=== PATIENT | female | born 1950 | race Caucasian/White ===

== ENCOUNTER 2017-05-25 13:55 | Emergency (ER) | payer SELFPAY ==
[~2017-05-25] VITALS: Ht 152.4 cm; Wt 60.0 kg
[2017-05-25 13:57] VITALS: BP 170/79; PULSE 74; RESP 20; TEMP 98.3; O2SAT 100
[2017-05-25] MEDS ORDERED: ERYTOIN10 RIGHT EYE (14:51)
[2017-05-25] MEDS ORDERED: IBUP-232 PO (14:51)
--- NOTE | 2017-05-25 14:52 | PD ---
HPI Chief Complaint: Eye Problems/Injury Time Seen by Provider: 14:47 Travel History International Travel<30 days: No Contact w/Intl Traveler<30days: No Traveled to known affect area: No History of Present Illness HPI 66-year-old female presents to the emergency Department with complaint of right eye pain and redness this started today after putting in a contact lens after cleaning it with contact lens cleaning solution. She has been flushing her eye for the last 3 hours for symptom management. Reports clear drainage. Reports blurry vision. Denies fever, vomiting. Allergies to epinephrine, iodine, Novocain. Has no other medical complaints. Symptoms are moderate in severity. No other modifying factors or associated signs and symptoms. PFSH Past Medical History Medical History: Denies Significant Hx Influenza Vaccination: Yes Past Surgical History Gynecologic Surgery: Yes (cysts removed) Social History Alcohol Use: No Tobacco Use: No Substance Use: No Allergies-Medications (Allergen,Severity, Reaction): Coded Allergies: epinephrine (Verified Allergy, Severe, heart palpitations, 05/25/17) iodine (Verified Allergy, Severe, heart palpitations, 05/25/17) Uncoded Allergies: novacaine (Allergy, Severe, heart palpitations, 05/25/17) Reported Meds & Prescriptions Reported Meds & Active Scripts Active Ibuprofen 600 Mg Tab 600 Mg PO Q6H PRN Erythromycin Opth Oint 5 Mg/Gm Oint 1 Applic RIGHT EYE QID 7 Days Review of Systems Except as stated in HPI: all other systems reviewed are Neg Physical Exam Narrative GENERAL: Well-nourished, well-developed female patient, in no acute distress SKIN: Warm and dry. HEAD: Atraumatic. Normocephalic. EYES: Pupils equal and round at 2 mm with brisk reaction. PERRLA. EOMI. Right lid eversion with no foreign body noted. Right eye with scleral erythema and mild lid edema. No orbital tenderness, erythema or cellulitis. Right eye with photophobia. No consensual photophobia. No scleral icterus. Clear drainage. Nix lamp exam reveals normal. Right eye pH 7. ENT: Mucosa pink and moist. Airway patent. NECK: Trachea midline. CARDIOVASCULAR: Regular rate. RESPIRATORY: No accessory muscle use. GASTROINTESTINAL: Flat. NEUROLOGICAL: Awake and alert. Oriented 3. No obvious cranial nerve deficits. Motor grossly within normal limits. Normal speech. PSYCHIATRIC: Appropriate mood and affect; insight and judgment normal. Data Data Last Documented VS Vital Signs Date Time Temp Pulse Resp B/P (MAP) Pulse Ox O2 Delivery O2 Flow Rate FiO2 05/25/17 14:58 05/25/17 13:57 98.3 74 20 100 Room Air MDM Medical Decision Making Medical Screen Exam Complete: Yes Emergency Medical Condition: Yes Medical Record Reviewed: Yes Differential Diagnosis Eye chemical exposure, foreign body, chemical abrasion, chemical burn Narrative Course 66-year-old female with right eye chemical exposure to a contact lens cleaning solution. With lamp exam is normal. Right eye pH is 7. I offered the patient pain medication in the ER and she declined. Erythromycin prescribed for home. Instructed patient to follow up with ophthalmology. Instructed patient to follow up with primary care provider. Patient verbalizes understanding and agreement with treatment plan. Patient is medically cleared and stable for discharge. Discussed reasons to return to the emergency department. Patient agrees with treatment plan. The patients vital signs are stable and the patient is stable for outpatient follow-up and treatment. Patient discharged home, stable and in no acute distress. Diagnosis Primary Impression: Chemical exposure of eye Referrals: Maintenance Specialist Primary Care Physician Patient Instructions: Chemical Eye [facility] (ED), General Instructions Additional Instructions: Ibuprofen or Tylenol as directed and as needed to reduce pain Do not rub the eye Refrigerated eye drops as needed to reduce pain Cool compresses to the eye as needed to reduce pain Follow-up with ophthalmology Primary care provider Return to the emergency department immediately with worsening of symptoms Med/Other Pt SpecificInfo: Prescription(s) given Scripts Ibuprofen (Ibuprofen) 600 Mg Tab 600 MG PO Q6H Y for PAIN, #20 TAB 0 Refills Prov: Cristiana Mccord 05/25/17 Erythromycin Opth Oint (Erythromycin Opth Oint) 5 Mg/Gm Oint 1 APPLIC RIGHT EYE QID for Infection for 7 Days, #1 TUBE 0 Refills Prov: Cristiana Mccord 05/25/17 Disposition: 01 DISCHARGE HOME Condition: Stable Cristiana Mccord May 25, 2017 14:52
== END 2017-05-25 15:25 | disposition home or self-care (01) ==
LOC: NEPD 13:55
DX: Z77.098 Contact with and (suspected) exposure to other hazardous, chiefly nonmedicinal, chemicals (principal)
CPT/HCPCS: 99283

== ENCOUNTER 2017-12-30 06:07 | Day surgery (SDC) | payer OTHER ==
[~2017-12-30] VITALS: Ht 152.4 cm; Wt 58.6 kg
[2017-12-30] VITALS (8 sets, daily range): BP systolic 114–155; BP diastolic 64–90; PULSE 56–65; RESP 16–18; TEMP 98; O2SAT 94–98
[~2017-12-30 06:07] MED LIST: ERYTOIN10 RIGHT EYE; IBUP-232 PO
[2017-12-30] MEDS ORDERED: SODIUM CHLOR 0.9% 1000 ML IV SCH (07:00)
[2017-12-30] MEDS ORDERED: NAPR500 PO (07:05)
[2017-12-30] MEDS ORDERED: CALC12502 PO (07:05)
[2017-12-30] MEDS ORDERED: FAMO1TAB37 PO (07:06)
[2017-12-30] MEDS ORDERED: MIDAZOLAM HCL 2 MG/2 ML VIAL ONE ×2 (08:19→09:02)
--- NOTE | 2017-12-30 09:20 | PD.RAD ---
Post CT Procedure Prog Note Pre Procedure Diagnosis: (1) Lung nodule, solitary Post Procedure Diagnosis: Procedure Date: Dec 30, 2017 Supervising Radiologist: Bang Morris Proceduralist/Assist: kitty ford Estimated blood loss: none Anesthesia: Conscious Sedation Plan of Activity Patient to Unit: [facility] Patient Condition: Good See PACS Report for procedural detail/treatment Bang Morris MD Dec 30, 2017 09:20
[2017-12-30] MEDS ORDERED: oxyCODONE/ACETAMINOPHEN 5 MG/325 MG TAB PO PRN (09:30)
--- NOTE | 2017-12-30 10:25 | RADRPT ---
EXAM DATE/TIME: 12/30/2017 10:34 [facility] COMPARISON: CT NEEDLE BIOPSY LUNG, LEFT, December 30, 2017, 8:44. INDICATIONS : Status post left lung biopsy. MEDICAL HISTORY : Lung mass. SURGICAL HISTORY : None. ENCOUNTER: Initial ACUITY: 1 day PAIN SCORE: 0/10 LOCATION: Left chest FINDINGS: A single frontal expiratory view of the chest was performed. A mass lesion projects over the left sca pula in the upper lung. No pneumothorax identified. Minimal interstitial prominence in the left lingu lar/lower lobe may represent atelectasis or scarring. CONCLUSION: No pneumothorax post biopsy of the left lung. Albert Hill MD on December 30, 2017 at 10:22 Board Certified Radiologist. This report was verified electronically.
--- NOTE | 2017-12-30 15:36 | RADRPT ---
EXAM DATE/TIME: 12/30/2017 08:44 [facility] COMPARISON: No previous studies available for comparison. INDICATIONS : Left lung mass. SEDATION TIME: 40 minutes BIOPSY SITE: Left MEDICATION(S): 1.) 2.5 mg midazolam (Versed) IV 2.) 125 mcg fentanyl (Sublimaze) IV DEVICE(S): 1.) 20 gauge Bard MEDICAL HISTORY : None. SURGICAL HISTORY : None. ENCOUNTER: Initial ACUITY: 1 day PAIN SCORE: 0/10 LOCATION: chest A total of one core specimen(s) were obtained and sent to the laboratory for pathologic evaluation. PROCEDURE: 1. CT guided lung biopsy. 2. Conscious sedation with continuous EKG and oximetry monitoring. 3. EKG and oximetry remained stable throughout the procedure. Prior to the procedure informed consent was obtained. Any appropriate prior imaging studies were rev iewed. Using automated exposure control and adjustment of the mA and/or kV according to patient size, radiation dose was kept as low as reasonably achievable to obtain optimal diagnostic quality images. DICOM format image data is available electronically for review and comparison. The site was prepped in a sterile fashion. Full sterile technique was used, including cap, mask, clay rile gloves and gown and a large sterile sheet. Hand hygiene and 2% chlorhexidine and/or betadine/al cohol prep was utilized per protocol for cutaneous antisepsis. The skin and subcutaneous tissues wer e infiltrated with local anesthetic solution. With CT guidance the previously identified target was localized. Biopsy was performed using the presc ribed needle as above. Adequate hemostasis was obtained with compression at the puncture site. Follow-up CT scan reveals no pneumothorax. Minimal hemorrhage. Conscious sedation was performed with the prescribed dosages and duration as above in the presence of an independent trained radiology nurse to assist in the monitoring of the patient. EKG and oximetry remained stable throughout the procedure. The patient tolerated the procedure well and there were no complications. The patient was sent to Radiology Outpatient Unit in stable condition. CONCLUSION: Successful CT guided biopsy of left upper lobe nodule. Bang Morris MD on December 30, 2017 at 15:32 Board Certified Radiologist. This report was verified electronically.
== END 2017-12-30 13:30 | disposition home or self-care (01) ==
LOC: HRAD 06:07 → HRIP 06:08 → HRAD 13:30
PROVIDERS: ATTEND Internal Medicine Hematology & Oncology
DX: C34.92 Malignant neoplasm of unspecified part of left bronchus or lung (principal); R01.1 Cardiac murmur, unspecified
CPT/HCPCS: 32405; 71045; 77012; 88305; 99152; 99153; J2250; J3010; J7030